=== PATIENT | male | born 1960 | race African-American/Black ===

== ENCOUNTER 2017-09-06 17:58 | Emergency (ER) | payer OTHER ==
[~2017-09-06] VITALS: Ht 162.6 cm; Wt 68.0 kg
[2017-09-06] MEDS ORDERED: Norco 5mg/325mg tab ORAL ONE (18:30)
--- NOTE | 2017-09-06 18:32 | Emergency Room Report ---
History of Present Illness General Chief Complaint: Lower Extremity Injury Source: Patient (Yun Rea) Present Illness HPI Patient is a 56-year-old male who presents today with complaints of left ankle pain. He states the pain began 2 weeks ago when he slipped and rolled his left ankle. He states the pain was improving at this morning he stepped the wrong way while in the shower he began having left ankle pain again. He states pain is currently status and severity in and he has been taking an unknown painkiller with relief, last dose of the medication was at 0600 this morning. He denies any numbness, tingling, loss of sensation (Yun Rea.Clint) Allergies: Coded Allergies: No Known Allergies (Unverified , 09/06/17) Patient History Reviewed Nursing Documentation: PMH: Agreed, PSxH: Agreed (Yun Rea) Nursing Documentation-PMH Past Medical History: No History, Except For Hx Hypertension: Yes (Yun Rea) Review of Systems Musculoskeletal: Reports: joint pain - left ankle pain All Other Systems: negative except mentioned in HPI (Yun Rea.Clint) Physical Exam Vital Signs Date Time Temp Pulse Resp B/P (MAP) Pulse Ox O2 Delivery O2 Flow Rate FiO2 09/06/17 17:53 98.1 90 18 157/99 96 Room Air Sp02 EP Interpretation: reviewed, normal General Appearance: no apparent distress, alert, GCS 15, non-toxic Head: normocephalic, atraumatic Eyes: bilateral eye normal inspection, bilateral eye PERRL ENT: hearing grossly normal, normal pharynx, no angioedema, normal voice Neck: full range of motion, supple/symm/no masses Respiratory: chest non-tender, lungs clear, normal breath sounds, speaking full sentences Cardiovascular #1: regular rate, rhythm, no edema Cardiovascular #2: 2+ carotid (R), 2+ carotid (L), 2+ radial (R), 2+ radial (L) , 2+ dorsalis pedis (R), 2+ dorsalis pedis (L) Gastrointestinal: normal bowel sounds, non tender, soft, non-distended, no guarding, no rebound Rectal: deferred Genitourinary: normal inspection, no CVA tenderness Musculoskeletal: back normal, gait/station normal, non-tender, calf tenderness , other - decreased ROM with flexion and extension at the left ankle, TTP over the left ankle, negative homans sign Neurologic: alert, oriented x3, responsive, motor strength/tone normal, sensory intact, speech normal Psychiatric: judgement/insight normal, memory normal, mood/affect normal, no suicidal/homicidal ideation Reflexes: 3+ bicep (R), 3+ bicep (L), 3+ tricep (R), 3+ tricep (L), 3+ knee (R) , 3+ knee (L) Skin: normal color, no rash, warm/dry, well hydrated Lymphatic: no adenopathy (Yun Rea P.A.) Medical Decision Making PA Attestation Supervising physician is Dr. Chavez Medicare Attestation No evidence of fracture on x-ray. The patient is placed in a short leg posterior splint, neurovascularly intact before and after splint is placed. Reevaluation at 1500, patient states pain is improving with medication. Patient is discharged home with symptomatic relief and to followup with PCP for reevaluation. Patient understands and is agreeable with plan (Yun Rea P.A.) Diagnostic Impression: Primary Impression: Left ankle sprain ER Course The patient x-rays were reviewed by radiology. The patient was noted to have questionable ankle fracture to the left medial malleolus. The patient was noted to be already in a posterior splint. The patient did not leave any contact information and so certified letter was sent. Patient should followup with orthopedics for questionable fracture. (Bryce Gordon) ER Course L ankle XR results Findings: Tissue swelling is noted about the ankle. There is a bony density inferior to the tip of the medial malleolus with slight irregularity of the tip of the medial malleolus. There are calcaneal enthesophytes. The remainder the bones are unremarkable. Impression: Soft tissue swelling. Avulsion fracture of the tip of the medial malleolus versus unfused apophysis for the medial malleolus or accessory ossicle. Calcaneal enthesophytes. (Sherin Chavez M.D.) Reevaluation Time: 19:01 Last Vital Signs Date Time Temp Pulse Resp B/P (MAP) Pulse Ox O2 Delivery O2 Flow Rate FiO2 09/06/17 17:53 98.1 90 18 157/99 96 Room Air Status: improved (Yun Rea) Disposition: HOME, SELF-CARE Condition: Stable Scripts Tramadol Hcl* (ULTRAM*) 50 Mg Tablet 50 MG ORAL Q6H Y for For Pain, #30 TAB 0 Refills Prov: Yun Rea 09/06/17 Patient Instructions: Ankle Sprain Yun Rea Sep 06, 2017 18:32 Bryce Gordon Sep 07, 2017 10:01 Sherin Chavez M.D. Sep 11, 2017 06:53
[2017-09-06] MEDS ORDERED: TRAMADOL HCL50 MG ORAL (19:02)
[2017-09-06 20:00] VITALS: BP 151/98
--- NOTE | 2017-09-07 09:52 | Diagnostic Imaging Report ---
Indication: PAIN Technique: XRAY FOOT MIN 3V LEFT Comparison: None. Findings: The osseous structures are intact. There is no fracture or destruction. The visualized joints are normal. There are posterior and plantar calcaneal enthesophytes. The soft tissues are unremarkable. Impression: Calcaneal enthesophytes. Otherwise normal.
--- NOTE | 2017-09-07 10:03 | Diagnostic Imaging Report ---
Indication: PAIN Technique: XRAY ANKLE MIN 3VWS LEFT Comparison: None. Findings: Tissue swelling is noted about the ankle. There is a bony density inferior to the tip of the medial malleolus with slight irregularity of the tip of the medial malleolus. There are calcaneal enthesophytes. The remainder the bones are unremarkable. Impression: Soft tissue swelling. Avulsion fracture of the tip of the medial malleolus versus unfused apophysis for the medial malleolus or accessory ossicle. Calcaneal enthesophytes. Dr. Gordon, was notified by phone at 10 AM 09/07/2017
== END 2017-09-06 20:00 | disposition home or self-care (01) ==
LOC: EDBD 17:58 → EMR 18:40
DX: S93.402A Sprain of unspecified ligament of left ankle, initial encounter (principal); X58.XXXA Exposure to other specified factors, initial encounter; X50.1XXA Overexertion from prolonged static or awkward postures, initial encounter; Y92.89 Other specified places as the place of occurrence of the external cause; I10 Essential (primary) hypertension
CPT/HCPCS: 99283